=== PATIENT | male | born 1975 | race Two or more races ===

== ENCOUNTER → 2022-12-13 | Emergency (ER) | payer OTHER ==
[~2022-12-13] MED LIST: ACETAMINOPHEN 1000 MG/100 ML BAG IVPB ONE; FAMOTIDINE 20 MG/50 ML IVPB 20 MG/50 ML MG IVPB ONE; MAG HYDROX/AL HYDROX/SIMETH 30 ML UNIT-DOSE CUP PO ONE
[2022-12-13 13:10] VITALS: BP 145/79; PULSE 103; RESP 20; TEMP 97.9; BMI 29.2
[2022-12-13 14:40] LABS: BASO % 0.6 % (0-2.0); EOS % 1.7 % (0-4.5); HEMATOCRIT 40.3 % (35.4-49); LYMPH % 37.9 % (8-40); MCH 29.4 pg (25.7-33.7); MCHC 34.8 g/dl (32.0-35.9); MEAN CELL VOLUME 84.6 fl (80-96); MEAN PLT VOLUME 8.5 fl (7.5-11.1); MONO % 7.2 % (3.8-10.2); NEUT % 52.6 % (42.8-82.8); PLATELET COUNT 303 10^3/uL (134-434); RBC 4.77 M/mm3 (4.00-5.60); RDW 15.1 % (11.9-15.9); WHITE BLOOD COUNT 8.6 K/mm3 (4.0-10.0)
[2022-12-13 14:54] LABS: ACTIVATED PTT 39.4 SECONDS (25.2-36.5); INR 1.03 (0.83-1.09); PROTHROMBIN TIME (PATIENT) 11.9 SEC (9.7-13.0)
[2022-12-13 15:02] LABS: POTASSIUM 4.5 mmol/L (3.5-5.1)
[2022-12-13 15:05] LABS: BLOOD UREA NITROGEN 17.1 mg/dL (7-18); CALCIUM 9.9 mg/dL (8.5-10.1)
[2022-12-13 15:06] LABS: ALBUMIN 4.4 g/dl (3.4-5.0)
[2022-12-13 15:09] LABS: CREATININE 0.8 mg/dL (0.55-1.3)
[2022-12-13 15:10] LABS: BILIRUBIN,TOTAL 0.6 mg/dL (0.2-1); TOT PROT 8.3 g/dl (6.4-8.2)
[2022-12-14 00:58] LABS: URINE APPEARANCE CLEAR; URINE BILIRUBIN NEGATIVE (NEGATIVE); URINE COLOR YELLOW; URINE GLUCOSE (UA) NEGATIVE (NEGATIVE); URINE KETONE NEGATIVE (NEGATIVE); URINE LEUK ESTERASE NEGATIVE (NEGATIVE); URINE NITRITE NEGATIVE (NEGATIVE); URINE PROTEIN NEGATIVE (NEGATIVE); URINE UROBILINOGEN 0.2 mg/dL (0.2-1.0)
== END | disposition home or self-care (01) ==
LOC: JER 12:52
PROC: 3E033GC Introduction of Other Therapeutic Substance into Peripheral Vein, Percutaneous Approach (ICD-10-PCS; principal; 2022-12-13)
PROC: 3E033NZ Introduction of Analgesics, Hypnotics, Sedatives into Peripheral Vein, Percutaneous Approach (ICD-10-PCS; 2022-12-13)
DX: R10.30 Lower abdominal pain, unspecified (principal); Z20.822 Contact with and (suspected) exposure to COVID-19
CPT/HCPCS: 36415; 74177-TC; 80053; 81003; 83605; 85025; 85610; 85730; 86850; 86900; 86901; 87086; 99285-25; C9803-CS; Q9967; U0003; U0005